=== PATIENT | male | born 1960 | race Caucasian/White ===

== ENCOUNTER 2021-07-08 10:28 | Inpatient (IN) | payer MEDICARE, OTHER ==
--- NOTE | 2021-07-08 10:43 | EDM.PDOC ---
ED HPI GENERAL MEDICAL PROBLEM - General Chief Complaint: Lower Extremity Injury/Pain Stated Complaint: LEFT LEG CELLULITIS Time Seen by Provider: 07/08/21 10:35 Source of Information: Reports: Patient History Limitations: Reports: No Limitations - History of Present Illness INITIAL COMMENTS - FREE TEXT/NARRATIVE: C department with complaint of left lower leg cellulitis concerns. Patient states that he has increased swelling, tenderness, redness, heat in the lower left leg. Patient was trying to get into the clinic today however they did not have an appointment till 2:00 this afternoon he did not feel like waiting. Patient states that he has been having fevers the last couple days and body aches along with chills. He denies any nausea, vomiting, shortness of breath, or chest pain. Patient states that he has been relatively well in the recent few weeks however states that he has increase in redness and swelling that lower extremity. Onset: Gradual Location: Reports: Lower Extremity, Left Severity: Moderate Improves with: Reports: Rest Worsens with: Reports: None Associated Symptoms: Reports: No Other Symptoms - Related Data Allergies Allergy/AdvReac Type Severity Reaction Status Date / Time latex Allergy Rash Verified 04/28/18 20:10 lisinopril AdvReac Cough Verified 04/28/18 20:10 Home Meds: Home Meds Allopurinol [Zyloprim] 300 mg PO DAILY 07/06/16 [History] Baclofen 20 mg PO BEDTIME 07/06/16 [History] Furosemide 40 mg PO DAILY 07/06/16 [History] Potassium Chloride [Klor-Con M20] 20 meq PO DAILY 07/06/16 [History] Venlafaxine HCl [Venlafaxine ER] 150 mg PO DAILY 07/06/16 [History] atorvaSTATin [Lipitor] 10 mg PO DAILY 07/06/16 [History] metFORMIN HCl [Metformin HCl] 1,000 mg PO BID 07/06/16 [History] modafiniL [Modafinil] 200 mg PO ACBREAKFAST 07/06/16 [History] Dalfampridine [Ampyra] 1 tab PO Q12H 07/02/17 [History] Furosemide [Lasix] 20 mg PO DAILY 09/17/17 [History] Levothyroxine [Levothroid] 137 mcg PO DAILY 09/19/17 [History] Past Medical History HEENT History: Reports: Other (See Below) Other HEENT History: presbyopia, myopia Cardiovascular History: Reports: Hypertension Respiratory History: Reports: Pneumonia, Recurrent, Sleep Apnea Gastrointestinal History: Reports: Other (See Below) Other Gastrointestinal History: Hemme positive stool. Fatty liver disease non alcoholic. FM HX colon CA Genitourinary History: Reports: UTI, Recurrent Musculoskeletal History: Reports: Gout, Other (See Below) Other Musculoskeletal History: Acute ankle pain Neurological History: Reports: MS Psychiatric History: Reports: None, Depression Endocrine/Metabolic History: Reports: Diabetes, Type II, Hypothyroidism, Obesity/BMI 30+ Hematologic History: Reports: None Immunologic History: Reports: None Oncologic (Cancer) History: Reports: None Dermatologic History: Reports: Cellulitis - Past Surgical History Head Surgeries/Procedures: Reports: None HEENT Surgical History: Reports: None Cardiovascular Surgical History: Reports: None GI Surgical History: Reports: Appendectomy, Hernia Repair/Other Endocrine Surgical History: Reports: Thyroid Biopsy, Thyroidectomy Musculoskeletal Surgical History: Reports: None Oncologic Surgical History: Reports: None Social & Family History - Family History Family Medical History: No Pertinent Family History ED ROS GENERAL - Review of Systems Review Of Systems: Comprehensive ROS is negative, except as noted in HPI. Constitutional: Reports: No Symptoms HEENT: Reports: No Symptoms Respiratory: Reports: No Symptoms Cardiovascular: Reports: No Symptoms Endocrine: Reports: No Symptoms GI/Abdominal: Reports: No Symptoms : Reports: No Symptoms Musculoskeletal: Reports: No Symptoms Skin: Reports: Other Neurological: Reports: No Symptoms Psychiatric: Reports: No Symptoms Hematologic/Lymphatic: Reports: No Symptoms Immunologic: Reports: No Symptoms ED EXAM, GENERAL - Physical Exam Exam: See Below Exam Limited By: No Limitations General Appearance: Alert, WD/WN, No Apparent Distress Head: Atraumatic, Normocephalic Respiratory/Chest: No Respiratory Distress, Lungs Clear, Normal Breath Sounds, No Accessory Muscle Use, Chest Non-Tender Cardiovascular: Normal Peripheral Pulses, Regular Rate, Rhythm Peripheral Pulses: 1+: Dorsalis Pedis (L), Dorsalis Pedis (R), 2+: Popliteal (L), Popliteal (R) GI/Abdominal: Normal Bowel Sounds, Soft, Non-Tender Back Exam: Normal Inspection, Full Range of Motion Extremities: Slow Capillary Refill, Leg Pain, Redness, Other (left leg- redness, swelling, warmth from toes to Tibial tuberosity region. Weeping noted an anterior portion of foot ) Neurological: Alert, Oriented Skin Exam: Increased Warmth Course - Orders/Labs/Meds Orders: Active Orders 24 hr Category Date Time Status Admission Status [Patient Status] [ADT] Routine ADT 07/08/21 11:43 Ordered EKG Documentation Completion [RC] STAT Care 07/08/21 10:47 Active CORONAVIRUS COVID-19 SHAHID [MOLEC] Stat Lab 07/08/21 11:26 Received CULTURE BLOOD [BC] Stat Lab 07/08/21 10:59 Received CULTURE BLOOD [BC] Stat Lab 07/08/21 11:04 Received Sodium Chloride 0.9% [Saline Flush] Med 07/08/21 10:46 Active 10 ml FLUSH ASDIRECTED PRN Blood Culture x2 Reflex Set [OM.PC] Stat Oth 07/08/21 10:45 Ordered Peripheral IV Insertion Adult [OM.PC] Stat Oth 07/08/21 10:45 Ordered Medication Orders Sodium Chloride (Sodium Chloride 0.9% 10 Ml Syringe) 10 ml FLUSH ASDIRECTED PRN PRN Reason: Keep Vein Open Last Admin: 07/08/21 11:41 Dose: 10 ml Documented by: LIZY Labs: Laboratory Tests 07/08/21 07/08/21 07/08/21 Range/Units 10:59 10:59 10:59 WBC 6.9 (4.0-10.0) x10^3/uL RBC 3.85 L (4.5-6.0) x10^6/uL Hgb 12.0 L (14.0-18.0) g/dL Hct 34.5 L (40.0-52.0) % MCV 89.6 (78.0-93.0) fL MCH 31.2 (26.0-32.0) pg MCHC 34.8 (32.0-36.0) g/dL RDW Coeff of Jordan 13.6 (10.0-15.0) % Plt Count 90 L (130-400) x10^3/uL Immature Gran % (Auto) 0.10 (0.00-0.43) % Neut % (Auto) 78.8 (50.0-80.0) % Lymph % (Auto) 12.9 L (25.0-50.0) % Lassen % (Auto) 5.9 (2.0-11.0) % Eos % (Auto) 2.0 (0.0-4.0) % Baso % (Auto) 0.3 (0.2-1.2) % Neut # (Auto) 5.4 (1.8-7.7) x10^3/uL Lymph # (Auto) 0.9 L (1.0-4.8) x10^3/uL Lassen # (Auto) 0.4 (0.0-0.8) x10^3/uL Eos # (Auto) 0.1 (0.0-0.5) x10^3/uL Baso # (Auto) 0.0 (0.0-0.2) x10^3/uL Immature Gran # (Auto) 0.01 (0.00-0.07) x10^3/uL Sodium 138 (136-145) mmol/L Potassium 3.3 L (3.5-5.1) mmol/L Chloride 100 (98-107) mmol/L Carbon Dioxide 25 (21-32) mmol/L Anion Gap 16.3 H (5-15) mmol/L BUN 13 (7-18) mg/dL Creatinine 1.1 (0.70-1.30) mg/dL Est Cr Clr Drug Dosing TNP Estimated GFR (MDRD) > 60 Glucose 211 H (70-99) mg/dL Lactic Acid 3.3 H* (0.4-2.0) mmol/L Calcium 8.0 L (8.5-10.1) mg/dL Corrected Calcium 8.7 (8.5-10.1) mg/dL Total Bilirubin 1.7 H (0.2-1.0) mg/dL AST 24 (15-37) U/L ALT 35 (16-63) U/L Alkaline Phosphatase 132 H (46-116) U/L Troponin I High Sens 10 (<=76) ng/L NT-Pro-B Natriuret Pep 207 H (<=125) pg/mL Total Protein 7.0 (6.4-8.2) g/dL Albumin 3.1 L (3.4-5.0) g/dL Globulin 3.9 Albumin/Globulin Ratio 0.79 Meds: Medications Generic Name Dose Route Start Last Admin Trade Name Freq PRN Reason Stop Dose Admin Sodium Chloride 10 ml 07/08/21 10:46 07/08/21 11:41 Sodium Chloride 0.9% 10 Ml Syringe FLUSH 10 ml ASDIRECTED PRN Administration Keep Vein Open Discontinued Medications Generic Name Dose Route Start Last Admin Trade Name Brendonq PRN Reason Stop Dose Admin Ceftriaxone Sodium 1 gm 07/08/21 10:46 07/08/21 11:40 Ceftriaxone 1 Gm Vial IVPUSH 07/08/21 10:47 1 gm ONETIME ONE Administration Sodium Chloride 1,000 mls @ 1,000 mls/hr 07/08/21 10:46 07/08/21 11:40 Normal Saline IV 07/08/21 11:45 1,000 mls/hr ONETIME ONE Administration Departure - Departure Time of Disposition: 11:40 Disposition: Admitted As Inpatient 66 Condition: Fair Clinical Impression: Left leg cellulitis Sepsis Qualifiers: Sepsis type: sepsis due to unspecified organism Sepsis acute organ dysfunction status: unspecified Qualified Code(s): A41.9 - Sepsis, unspecified organism - Discharge Information Forms: ED Department Discharge - My Orders Last 24 Hours: My Active Orders 07/08/21 10:45 Blood Culture x2 Reflex Set [OM.PC] Stat Peripheral IV Insertion Adult [OM.PC] Stat 07/08/21 10:46 Sodium Chloride 0.9% [Saline Flush] 10 ml FLUSH ASDIRECTED PRN 07/08/21 10:47 EKG Documentation Completion [RC] STAT 07/08/21 10:59 CULTURE BLOOD [BC] Stat 07/08/21 11:04 CULTURE BLOOD [BC] Stat 07/08/21 11:26 CORONAVIRUS COVID-19 SHAHID [MOLEC] Stat 07/08/21 11:43 Admission Status [Patient Status] [ADT] Routine - Assessment/Plan Last 24 Hours: My Active Orders 07/08/21 10:45 Blood Culture x2 Reflex Set [OM.PC] Stat Peripheral IV Insertion Adult [OM.PC] Stat 07/08/21 10:46 Sodium Chloride 0.9% [Saline Flush] 10 ml FLUSH ASDIRECTED PRN 07/08/21 10:47 EKG Documentation Completion [RC] STAT 07/08/21 10:59 CULTURE BLOOD [BC] Stat 07/08/21 11:04 CULTURE BLOOD [BC] Stat 07/08/21 11:26 CORONAVIRUS COVID-19 SHAHID [MOLEC] Stat 07/08/21 11:43 Admission Status [Patient Status] [ADT] Routine Assessment:: 1. left lower leg cellulitis 2. Sepsis Plan: 1. Sepsis protocol initiated and followed 2. Labs completed in the ER. Results reviewed with the patient 3. Blood cultures completed 4. IV initiated in the emergency department 5. IV fluids provided 6. EKG completed in ER. 7. Rocephin 1gm given 8. Consultation completed with-Dr. Sim and patient will be admitted to acute care 9. Patient and nursing staff was updated regarding the plan of care 10. Patient and family are agreeable to the above plan of care 11. All questions and concerns were addressed with the patient and family prior to admit 12. Covid rapid- negative
[2021-07-08] MEDS ORDERED: Sodium Chloride 0.9% 1,000 ML IV ONE (10:46)
[2021-07-08] MEDS ORDERED: cefTRIAXone 1 GM Vial IVPUSH ONE (10:46)
[2021-07-08 11:41] LABS: CHLORIDE,CL 100 mmol/L (98-107); SODIUM,NA 138 mmol/L (136-145)
[2021-07-08] MEDS: Sodium Chloride 0.9% 10 ML Syringe FLUSH PRN ×2 (11:41→15:22)
[2021-07-08 11:43] LABS: ANION GAP 16.3 mmol/L (5-15)
[2021-07-08] MEDS ORDERED: Acetaminophen 325 MG Tab PO PRN (12:28)
[2021-07-08] MEDS ORDERED: Potassium Chloride 10 MEQ Tab.ER PO ONE (12:36)
[2021-07-08] MEDS ORDERED: Glucagon,Human Recombinant 1 MG Vial IM PRN (12:39)
[2021-07-08] MEDS ORDERED: 50% Dextrose in Water 50 ML Syringe IVPUSH PRN (12:39)
[2021-07-08] MEDS ORDERED: Fluconazole 100 MG Tab PO PRN (13:24)
[2021-07-08] MEDS: Sodium Chloride 0.9% 1,000 ML IV SCH ×2 (14:30→22:01)
[2021-07-08] MEDS: Enoxaparin 40 MG/0.4 ML Syringe SUBCUT SCH (14:31)
[2021-07-08] MEDS ORDERED: cefTRIAXone 1 GM Vial IVPUSH STA (15:12)
[2021-07-08] MEDS: Furosemide 40 MG Tab PO SCH (15:29)
[2021-07-08] MEDS: Magnesium Oxide 400 MG Tab PO SCH (16:23)
[2021-07-08] MEDS: metFORMIN 500 MG Tab PO SCH (18:10)
[2021-07-08] MEDS: Insulin Lispro 100 Units/ML 3 ML Vial SUBCUT SCH (18:11)
--- NOTE | 2021-07-08 19:30 | HP ---
CHIEF COMPLAINT: Cellulitis. HISTORY OF PRESENT ILLNESS: The patient is a 61-year-old diabetic with MS who developed redness and swelling of his left leg about a day ago. He denies injury of it. The area has gotten to be more tender. It is difficult for him to walk on it. This is his good leg on the left side as he has MS which affects his right side. He has felt chilled, but he has not had a fever. He denies any trauma to the area. He does receive infusions for his MS, but that is not due until next week. The patient's blood sugars have been going up a little bit. The patient is disabled. He does live with his significant other. He is having a little bit more difficult time walking. He was seen in the emergency room by Mariana Champagne, nurse practitioner. It was noted his temperature was 37.4. His left leg was noted to be red from his knee to his ankle, but not involving the knee joint or the ankle joint. There is no active drainage of his leg. It is warm and flush to touch. LABORATORY DATA: On admission showed his white blood cell count 6.9, hemoglobin 12.0, platelets 90 with 78 segs, 12.9 lymphocytes. Sodium is 138, potassium 3.3, creatinine 1.1, GFR greater than 60, glucose 212, lactic acid 3.3, AST 24, ALT 32, alkaline phosphatase 132, proBNP 207, procalcitonin 2.7 and elevated. COVID test negative. MEDICATIONS: The patient is currently on are Kenalog 0.1% cream topically twice a day, Diflucan 1 tablet prior to Ocrevus infusions and repeat in 3 days, furosemide 40 mg 1 pill twice a day, metformin 1000 mg 1 pill twice a day, Trulicity 1.5 mg/5 mL once a week which is on Fridays, levothyroxine 175 mcg 1 pill everyday except none on , losartan 25 mg 1 pill daily, baclofen 10 mg 2 pills at bedtime, Cymbalta 60 mg 1 pill a day, allopurinol 300 mg 1 pill a day, Ocrevus 300 mg/10 mL and he gets 600 mg every 6 months, aspirin 81 mg 1 pill a day. ALLERGIES: The patient is allergic to Wellbutrin, red dye, and latex. PAST MEDICAL HISTORY: The patient has type 2 diabetes mellitus. He has hypertension. He has MS. He has had colon polyps. He has had fatty liver disease, nonalcoholic. He has had gout, hypothyroidism, hyperlipidemia, major depression, morbid obesity, CPAP use with a sleep machine at night, he has obstructive sleep apnea, colon cancer. PAST SURGICAL HISTORY: He has had an appendectomy, hernia repair, thyroidectomy. FAMILY MEDICAL HISTORY: There is a family history of colon cancer. SOCIAL HISTORY: The patient is on disability due to his MS. He previously had worked in [employer]. He does have a same-sex partner, Pablo whom he lives with. He has 5 adopted children. The patient quit smoking in 1999. Alcohol use is rare. REVIEW OF SYSTEMS: He usually uses a walker or a cane for ambulation. He has had a little bit of lack of appetite the past few days. No chest pain. No shortness of breath. No nausea. He is incontinent. He does wear briefs. He is weak on his right side due to his MS. Mood is good. OBJECTIVE: Vital Signs: His weight is 124.7 kg, temperature is 37.4, pulse 85, blood pressure is 130/59, respiratory rate is 18, saturations are 97%. Skin: He is bright, red, and warm on his left anterior and posterior leg from his knee to his ankle. He does have some mild tenderness on his right lower leg, but no redness. General: He is wearing a mask. Neck: No anterior cervical lymphadenopathy. Heart: Regular rate and rhythm without murmurs or bruits. Lungs: Clear to auscultation. Abdomen: Obese, soft, nontender. Left inguinal area does also have some erythema present as well which seems to be more possibly related to his contact dermatitis. To note, in the emergency room had also been given some normal saline. IMPRESSION: 1. Septic. 2. Cellulitis of left leg with elevated lactic acid. 3. Type 2 diabetes mellitus. 4. Multiple sclerosis with weakness on his right side which is chronic. 5. Obstructive sleep apnea. 6. Morbid obesity. 7. Hypertension. PLAN: The patient will be admitted to Acute Care. We will continue IV Rocephin. We will continue IV hydration. We will give an oral potassium supplement to help correct his hypokalemia. The patient will be placed on Lovenox for DVT prophylaxis. I did visit about code level status with the patient. He is code level 1 status and does desire to be resuscitated. We will need to have patient use his own Trulicity here as it is not on formulary at the hospital. If the patient's condition would deteriorate, he would need to be transferred to [facility] with his sepsis. Also the patient because of probable need to postpone his MS infusion would hopefully be able to be getting his flu shot. GM07/08/2021 12:27:46 MODL: 07/08/2021 19:16:27 /[id number]
[2021-07-08] MEDS: Baclofen 10 MG Tab PO SCH (19:53)
[2021-07-08] MEDS: Triamcinolone Acetonide 0.1% Crm 15 GM Tube TOP SCH (19:56)
[2021-07-09] MEDS: Sodium Chloride 0.9% 1,000 ML IV SCH ×3 (05:56→21:20)
[2021-07-09] MEDS: cefTRIAXone 2 GM Vial IVPUSH SCH (07:58)
[2021-07-09] MEDS: Sodium Chloride 0.9% 10 ML Syringe FLUSH PRN (07:58)
[2021-07-09] MEDS: metFORMIN 500 MG Tab PO SCH ×2 (07:59→17:44)
[2021-07-09] MEDS: Allopurinol 300 MG Tab PO SCH (07:59)
[2021-07-09] MEDS: Aspirin 81 MG Tab.EC PO SCH (07:59)
[2021-07-09] MEDS: Insulin Lispro 100 Units/ML 3 ML Vial SUBCUT SCH ×3 (08:00→17:44)
[2021-07-09] MEDS: Furosemide 40 MG Tab PO SCH ×2 (08:00→15:46)
[2021-07-09] MEDS: Losartan 25 MG Tab PO SCH (08:00)
[2021-07-09] MEDS: Magnesium Oxide 400 MG Tab PO SCH (08:00)
[2021-07-09] MEDS ORDERED: TRULICITY 1.5 MG/0.5 ML SUBCUT SCH (08:00)
[2021-07-09] MEDS: DULoxetine 60 MG Cap PO SCH (08:00)
[2021-07-09] MEDS: Triamcinolone Acetonide 0.1% Crm 15 GM Tube TOP SCH ×2 (08:02→19:24)
[2021-07-09 08:10] LABS: CHLORIDE,CL 104 mmol/L (98-107); SODIUM,NA 139 mmol/L (136-145)
[2021-07-09 08:17] LABS: ANION GAP 14.4 mmol/L (5-15)
--- NOTE | 2021-07-09 09:23 | PN ---
Progress Note for RODGER MCCURDY Date: 07/09/2021 Room #: VM.217 SUBJECTIVE: The patient was admitted with cellulitis, but last evening his leg is a little bit improved from redness. Otherwise, he did not sleep well last night. He has been receiving IV hydration as he has not been eating as well. He is feeling a bit better this morning. OBJECTIVE: Vital Signs: His temperature is 36.7, blood pressure is 142/70, pulse 74, respirations 16, sats are 100%. General: He is alert, pleasant to visit with. Heart: Regular rate and rhythm. Lungs: Clear to auscultation. Abdomen: Soft. Extremities: His left lower leg does have dusky erythema, but it has regressed about 2 cm on each side. There is no active weeping noted. LABORATORY DATA: Shows his white blood cell count 5.2, hemoglobin has dropped to 10.8 with platelets 87. Neutrophils are 65, lymphs are 19%. ESR is up to 58. Sodium is 139, potassium 3.4, creatinine 1.0. GFR greater than 60. Lactic acid yesterday had improved to 0.9. His magnesium level was low yesterday at 1.5. LFTs are improved. His CRP is 18.5, albumin 2.8. Procalcitonin is about the same at 2.25. Urine showed specific gravity was 1.020 with some urobilinogen. IMPRESSION: 1. Left leg cellulitis. 2. Hypokalemia. 3. Hypomagnesemia. 4. Dehydration. 5. Multiple sclerosis. 6. Type 2 diabetes mellitus. PLAN: We can take him off telemetry. We will continue the IV Rocephin as well as the IV hydration. We will start him on oral potassium. He was started on oral magnesium and we will check that again tomorrow. GM07/09/2021 09:03:33 MODL: 07/09/2021 09:17:49 /[id number]
[2021-07-09] MEDS: Potassium Chloride 10 MEQ Tab.ER PO SCH (09:30)
[2021-07-09] MEDS: Enoxaparin 40 MG/0.4 ML Syringe SUBCUT SCH (11:41)
[2021-07-09] MEDS: Baclofen 10 MG Tab PO SCH (19:23)
[2021-07-10] MEDS: Sodium Chloride 0.9% 1,000 ML IV SCH (05:25)
[2021-07-10] MEDS: Furosemide 40 MG Tab PO SCH ×3 (05:25→13:17)
[2021-07-10] MEDS: Triamcinolone Acetonide 0.1% Crm 15 GM Tube TOP SCH ×2 (07:58→19:29)
[2021-07-10] MEDS: cefTRIAXone 2 GM Vial IVPUSH SCH (08:02)
[2021-07-10] MEDS: Losartan 25 MG Tab PO SCH (08:04)
[2021-07-10] MEDS: Aspirin 81 MG Tab.EC PO SCH (08:04)
[2021-07-10] MEDS: metFORMIN 500 MG Tab PO SCH ×2 (08:04→17:40)
[2021-07-10] MEDS: Allopurinol 300 MG Tab PO SCH (08:04)
[2021-07-10] MEDS: DULoxetine 60 MG Cap PO SCH (08:06)
[2021-07-10] MEDS: Insulin Lispro 100 Units/ML 3 ML Vial SUBCUT SCH (08:06)
[2021-07-10] MEDS: Potassium Chloride 10 MEQ Tab.ER PO SCH (08:06)
[2021-07-10] MEDS: Magnesium Oxide 400 MG Tab PO SCH ×2 (08:06→19:28)
[2021-07-10 08:15] LABS: CHLORIDE,CL 105 mmol/L (98-107); SODIUM,NA 140 mmol/L (136-145)
--- NOTE | 2021-07-10 10:10 | PN ---
Progress Note for RODGER MCCURDY Date: 07/10/2021 Room #: VM.217 SUBJECTIVE: The patient is on his 3rd hospital day of being admitted with cellulitis. He is feeling a little bit better. He is eating better, has a little bit more strength. OBJECTIVE: Vital Signs: His vital signs have been stable. Blood pressure is 145/71. Blood sugars have been less than 200s. Heart: Regular rate. Lungs: Clear. Extremities: His left lower leg still has some warmth and erythema, but it has receded slightly. Neurologic: He is alert, pleasant to visit with. LABORATORY DATA: His white blood cell count is 3.9, hemoglobin 11.1, platelets are 99. Sodium is 140, potassium 4.0, creatinine 0.9, GFR greater than 60. Magnesium is low at 1.5. IMPRESSION: 1. Left leg cellulitis. 2. Sepsis. 3. Hypokalemia. 4. Hypomagnesemia. 5. Type 2 diabetes mellitus. 6. Multiple sclerosis. 7. Neurogenic bladder. PLAN: Once his current IV bag of fluids is in, we will discontinue this. We will stop p.r.n. insulin sliding scale as he has not had to need this. We will also increase his oral magnesium. He was started on potassium yesterday. He has not yet been seen by therapies to work on strengthening as of yet. GM07/10/2021 09:17:01 MODL: 07/10/2021 10:00:09 /[id number]
[2021-07-10] MEDS: Enoxaparin 40 MG/0.4 ML Syringe SUBCUT SCH (11:38)
[2021-07-10] MEDS: Baclofen 10 MG Tab PO SCH (19:28)
[2021-07-11] MEDS: Furosemide 40 MG Tab PO SCH ×2 (05:36→13:07)
[2021-07-11 07:51] LABS: CHLORIDE,CL 105 mmol/L (98-107); SODIUM,NA 140 mmol/L (136-145)
[2021-07-11 07:52] LABS: ANION GAP 12.8 mmol/L (5-15)
[2021-07-11] MEDS: Allopurinol 300 MG Tab PO SCH (08:42)
[2021-07-11] MEDS: Potassium Chloride 10 MEQ Tab.ER PO SCH (08:42)
[2021-07-11] MEDS: cefTRIAXone 2 GM Vial IVPUSH SCH (08:42)
[2021-07-11] MEDS: metFORMIN 500 MG Tab PO SCH (08:42)
[2021-07-11] MEDS: Magnesium Oxide 400 MG Tab PO SCH (08:43)
[2021-07-11] MEDS: DULoxetine 60 MG Cap PO SCH (08:43)
[2021-07-11] MEDS: Triamcinolone Acetonide 0.1% Crm 15 GM Tube TOP SCH (08:43)
[2021-07-11] MEDS: Aspirin 81 MG Tab.EC PO SCH (08:43)
[2021-07-11] MEDS: Losartan 25 MG Tab PO SCH (08:43)
[2021-07-11] MEDS ORDERED: Magnesium Sulfate/Water 2 GM in Premix Bag 1 BAG IV ONE (09:13)
[2021-07-11 11:22] VITALS: PULSE 67
[2021-07-11] MEDS: Enoxaparin 40 MG/0.4 ML Syringe SUBCUT SCH (13:07)
[2021-07-11 14:46] VITALS: BP 125/57
[2021-07-11] MEDS ORDERED: Cephalexin 500 MG Cap PO SCH (15:15)
--- NOTE | 2021-07-12 00:14 | DISCH ---
PRIMARY DISCHARGE DIAGNOSES: 1. Left lower extremity cellulitis. 2. Sepsis secondary to left lower extremity cellulitis. 3. Type 2 diabetes, controlled, not on long-term insulin. 4. Multiple sclerosis with sustained dysfunction and right leg weakness. 5. Essential hypertension, obesity, fatty liver disease, depression, obstructive sleep apnea, and previous pneumonia admitted in 2016, previous cellulitis in the right groin in 2013, but not in this left leg. 6. History of colon polyps. 7. Hypothyroidism. REASON FOR ADMISSION: On the date of admission, this 61-year-old male had developed some redness and swelling to his left leg for about 24 hours. It was getting more tender. He was having a hard time walking. He was having fevers, so he presented to the ER and was found to have a white count of actually normal, but a lactic 3.3, repeat 9. He was started on IV antibiotics with Rocephin. His procalcitonin was actually elevated up to 2.79 and then did normalize by the next hospital day. His UA was negative for infection. His COVID was negative. The patient continued on IV Rocephin. The dose was increased up to 2 g daily and he was having some improvement in his pain and redness and he was having no fevers during his admission. The patient had not been out much as he did have his equipment to get around, but he would like to be able to return home today if he is able. He got his last dose of Rocephin this morning and will be switched over to oral Keflex. DISCHARGE PLANS AND INSTRUCTIONS: The patient will follow up in the clinic in 1- 2 weeks. He will get a magnesium level with his lab work that is due later this month. He will be on Keflex 500 four times a day for another 4 days. He will resume all of his previous medications, but his MS infusion Ocrevus which was due next week will be postponed. He was also sent home on magnesium once daily. He was having some diarrhea before he came in, so we tried to give him some IV magnesium, but he felt it cause more spasms. PHYSICAL EXAMINATION: DISCHARGING VITAL SIGNS: Include a temperature 97.4, pulse 67, blood pressure 125/57, respiratory rate 18, and O2 of 97% on room air. GENERAL: He is in no acute distress. HEART: Regular rate and rhythm. S1 and S2 without murmur. LUNGS: Sounds are clear to auscultation bilaterally without crackles or wheezes. ABDOMEN: Positive bowel sounds. Soft, nondistended, and nontender. EXTREMITIES: Warm and dry. No edema. On the left leg, he does have some redness and mild warmth. There is thickening to his toenails, but no open sores or ulcers. There is black lines drawn on his leg and the redness has clearly receded from those lines. There is no wound or abscess noted. It should also be noted his discharging platelets improved up to 111. He had mild anemia and his hemoglobin was stable at 10.7. Blood sugars were all excellent between 89 and 124 during his stay, after the initial blood sugar was elevated at 211 on admit. MKA: 07/11/2021 21:33:23 MODL: 07/12/2021 00:03:35 /[id number]
== END 2021-07-11 16:00 | disposition home or self-care (01) | DRG 872 ==
LOC: VM.ED 10:28 → VM.MS 11:43
PROVIDERS: ADMIT Family Medicine; ATTEND Internal Medicine
DX: A41.9 Sepsis, unspecified organism (principal); L03.116 Cellulitis of left lower limb; Z68.41 Body mass index [BMI] 40.0-44.9, adult; G35 Multiple sclerosis; G47.33 Obstructive sleep apnea (adult) (pediatric); E03.9 Hypothyroidism, unspecified; Z20.822 Contact with and (suspected) exposure to COVID-19; E66.01 Morbid (severe) obesity due to excess calories; F32.9 Major depressive disorder, single episode, unspecified; E87.6 Hypokalemia; F32.A Depression, unspecified; E83.42 Hypomagnesemia; N31.9 Neuromuscular dysfunction of bladder, unspecified; E86.0 Dehydration; I10 Essential (primary) hypertension; H52.4 Presbyopia; H52.10 Myopia, unspecified eye; G47.30 Sleep apnea, unspecified; M10.9 Gout, unspecified; E11.9 Type 2 diabetes mellitus without complications; Z91.040 Latex allergy status; Z88.8 Allergy status to other drugs, medicaments and biological substances; Z79.84 Long term (current) use of oral hypoglycemic drugs; Z79.890 Hormone replacement therapy; Z79.899 Other long term (current) drug therapy; Z90.49 Acquired absence of other specified parts of digestive tract
CPT/HCPCS: 36415; 80048; 80053; 81003; 82550; 82947; 83605; 83735; 83880; 84145; 84443; 84484; 85025; 85652; 86140; 87040; 90686; 93005; 96374; 97161-GP; 97165-GO; 99284; 99284-25; A9270-GY; G0008; J0696; J1650; J1815-GY; J3475; J7030; U0002